=== PATIENT | female | born 2000 | race African-American/Black ===

== ENCOUNTER 2020-08-14 23:09 | Emergency (ER) | payer SELFPAY ==
[~2020-08-14] VITALS: Ht 165.1 cm; Wt 59.0 kg
[2020-08-14 23:12] VITALS: BP 138/99
[2020-08-15] MEDS ORDERED: TETANUS, DIPHTHERIA, PERTUSSIS VAC/PF 0.5ML (>7YR OLD) IM ONE (01:00)
[2020-08-15] MEDS ORDERED: ACETAMINOPHEN 325MG TABLET PO ONE (01:00)
[2020-08-15] MEDS ORDERED: ACET-2708 MT (04:20)
== END 2020-08-15 04:56 | disposition home or self-care (01) ==
LOC: ER 23:09
DX: S90.31XA Contusion of right foot, initial encounter (principal); S60.222A Contusion of left hand, initial encounter; S09.8XXA Other specified injuries of head, initial encounter; S20.219A Contusion of unspecified front wall of thorax, initial encounter; R03.0 Elevated blood-pressure reading, without diagnosis of hypertension; Y04.2XXA Assault by strike against or bumped into by another person, initial encounter; Y93.89 Activity, other specified; V49.59XA Passenger injured in collision with other motor vehicles in traffic accident, initial encounter; Y92.488 Other paved roadways as the place of occurrence of the external cause; G40.909 Epilepsy, unspecified, not intractable, without status epilepticus; Z23 Encounter for immunization
CPT/HCPCS: 71045; 73130; 73630; 90471; 90715; 99284

== ENCOUNTER 2023-04-27 20:36 | Emergency (ER) | payer MEDICAID, OTHER ==
[~2023-04-27] VITALS: Ht 162.6 cm; Wt 78.0 kg
[~2023-04-27 20:36] MED LIST: ACET-2708 MT
[2023-04-27 20:42] VITALS: BP 105/73; PULSE 108; RESP 16; TEMP 98.8; O2SAT 99
[2023-04-27] MEDS ORDERED: CLIN-194 MT (22:57)
[2023-04-27] MEDS ORDERED: IBUP-2029 MT (22:57)
[2023-04-27] MEDS ORDERED: CLINDAMYCIN HCL 150MG CAPSULE PO ONE (23:00)
[2023-04-27] MEDS ORDERED: KETOROLAC 30MG/ML VIAL IM ONE (23:00)
== END 2023-04-27 23:52 | disposition home or self-care (01) ==
LOC: ER 20:36
DX: J02.9 Acute pharyngitis, unspecified (principal)
CPT/HCPCS: 99283; 81025; 87430; 96372; J1885